=== PATIENT | male | born 1995 | race Caucasian/White ===

== ENCOUNTER 2017-09-30 18:29 | Emergency (ER) | payer OTHER ==
[~2017-09-30] VITALS: Ht 188 cm; Wt 61.2 kg
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
[2017-09-30 19:11] VITALS: BP 121/46
== END 2017-09-30 21:01 | disposition home or self-care (01) ==
LOC: ER 18:29
DX: S51.812A Laceration without foreign body of left forearm, initial encounter (principal); W26.8XXA Contact with other sharp object(s), not elsewhere classified, initial encounter; Y93.89 Activity, other specified; Y92.89 Other specified places as the place of occurrence of the external cause; Y99.8 Other external cause status
CPT/HCPCS: 12001; 99283

== ENCOUNTER 2018-10-31 14:52 | Emergency (ER) | payer OTHER ==
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
[2018-10-31] MEDS ORDERED: IBUP200T44 PO (15:34)
[2018-10-31] MEDS ORDERED: IBUPROFEN 600 MG TABLET. PO ONE (15:45)
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
[2018-10-31 16:13] VITALS: BP 112/63
== END 2018-10-31 16:10 | disposition home or self-care (01) ==
LOC: ER 14:52
DX: M25.462 Effusion, left knee (principal); Z88.0 Allergy status to penicillin; V29.9XXA Motorcycle rider (driver) (passenger) injured in unspecified traffic accident, initial encounter; Y93.55 Activity, bike riding; Y92.89 Other specified places as the place of occurrence of the external cause; Y99.8 Other external cause status
CPT/HCPCS: 29505; 73562; 99284